=== PATIENT | male | born 2005 | race Two or more races ===

== ENCOUNTER 2025-08-01 13:00 | Emergency (ER) | payer OTHER ==
[~2025-08-01] VITALS: Ht 162.6 cm; Wt 45.4 kg
[2025-08-01] MEDS ORDERED: ONDANSETRON HCL 2 MG/ML VIAL IV ONE (15:45)
[2025-08-01] MEDS ORDERED: FAMOTIDINE/PF 20 MG/2 ML VIAL IV ONE (15:45)
[2025-08-01] MEDS ORDERED: 0.9 % SODIUM CHLORIDE 1,000 ML IV ONE (15:45)
[2025-08-01] MEDS ORDERED: FAMOTIDINE/PF 20 MG/2 ML VIAL ONE (16:02)
[2025-08-01] MEDS ORDERED: ONDANSETRON HCL 2 MG/ML VIAL ONE (16:02)
[2025-08-01 16:38] LABS: BASO % 0.5 % (0.1-1.2); EOS # 0.00 (0.04-0.54); EOS % 0.0 % (0.7-7.0); LYMPH # 0.38 (1.18-3.74); LYMPH % 5.1 % (19.3-53.1); MEAN PLATELET VOLUME 9.50 fl (9.4-12.4); MONO # 0.40 (0.24-0.82); MONO % 5.4 % (4.7-12.5); NEUT # 6.53 (1.56-6.13); NEUT % 88.6 % (34.0-71.1); RED CELL DISTRIBUTION WIDTH 12.4 % (11.6-14.4)
[2025-08-01 17:08] LABS: ALT/SGPT 77.0 U/L (12-78); AST/SGOT 56.0 U/L (15-37); BILIRUBIN TOTAL 0.65 mg/dL (0.3-1.2); BUN CREA RATIO 12.0 (7.0-25.0); CREATININE SERUM 0.89 mg/dL (0.70-1.30); GFR 107.9; GLOBULINA 4.3 G/DL (2.4-3.5); GLUCOSE FASTING 116.0 mg/dL (65-100); OSMOLALITY SERUM 270.0 MOSM/KG (275-295)
[2025-08-01 17:59] LABS: COVID-19 AG NEGATIVE (NEGATIVE)
[2025-08-01 18:01] LABS: URINE APPEARANCE Clear; URINE BILIRRUBIN Negative (NEGATIVE); URINE BLOOD Negative; URINE COLOR Dark Yellow; URINE GLUCOSE Negative (NEGATIVE); URINE KETONE 15 (NEGATIVE); URINE LEUKOCYTE Negative; URINE NITRATE Negative; URINE PROTEIN 30 (NEGATIVE); URINE UROBILINOGEN 1.0 E.U./dl
[2025-08-01 18:05] LABS: URINE BACTERIA 9.5 uL (0.0-1933); URINE EPITHELIAL CELLS 5.5 uL (0.0-38.8); URINE RBC 39.5 uL (0.0-20.8); URINE WBC 7.0 uL (0.0-23.2)
[2025-08-01 18:15] LABS: URINE CAST 0.43 uL (0.0-1.40)
[2025-08-01] MEDS ORDERED: ACETAMINOPHEN 500 MG GEL..CAP PO ONE (18:58)
[2025-08-01] MEDS ORDERED: 0.9 % SODIUM CHLORIDE 500 ML IV ONE (20:15)
[2025-08-01] MEDS ORDERED: KETOROLAC TROMETHAMINE 30 MG VIAL ONE (20:21)
[2025-08-01] MEDS ORDERED: KETOROLAC TROMETHAMINE 30 MG VIAL IV ONE (20:30)
[2025-08-01] MEDS ORDERED: PEPCID AC20 MG PO (22:07)
[2025-08-01] MEDS ORDERED: ONDANSETRON ODT4 MG PO (22:07)
== END 2025-08-01 22:23 | disposition home or self-care (01) ==
LOC: ER 13:00 → EDBD 13:35 → ER 13:35
PROVIDERS: General Practice
DX: G44.89 Other headache syndrome (principal); R53.81 Other malaise; Z20.822 Contact with and (suspected) exposure to COVID-19